=== PATIENT | female | born 1975 | race Two or more races ===

== ENCOUNTER 2020-12-25 13:19 | Inpatient (IN) | payer MEDICAID ==
[~2020-12-25] VITALS: Ht 154.9 cm; Wt 64.5 kg
[~2020-12-25 13:19] MED LIST: IBUP400T22 PO; METO-158 PO; PANT40T PO
[2020-12-25] MEDS ORDERED: ONDANSETRON HCL 4 MG/2 ML VIAL IV ONE (13:45)
[2020-12-25] MEDS ORDERED: SODIUM CHLORIDE 0.9% 1,000 ML IVB ONE (13:45)
[2020-12-25] MEDS ORDERED: MORPHINE SULFATE 4 MG/ML SYR/VIAL IV ONE (14:30)
[2020-12-25 14:38] LABS: Eosinophils # (auto) 0.1 10 ^3/uL (0-0.8); Hemoglobin 11.3 g/dL (12.2-16.2); Lymphocytes # (auto) 0.7 10 ^3/uL (0.4-5.4); Monocytes # (auto) 0.8 10 ^3/uL (0-1.3); Nucleated Red Blood Cells % 0.1 %
[2020-12-25 14:42] LABS: Basophils # (auto) 0.1 10 ^3/uL (0-0.2); Basophils % (auto) 0.4 % (0.0-2.0); Eosinophils % (auto) 0.5 % (0.0-7.0); Hematocrit 34.6 % (36.0-46.0); Lymphocytes % (auto) 3.8 % (10.0-50.0); Mean Corpuscular Hemoglobin 25.1 pg (28.0-32.0); Mean Corpuscular Hgb Conc. 32.6 g/dL (32.0-36.0); Mean Corpuscular Volume 77.2 fL (80.0-100.0); Monocytes % (auto) 4.1 % (0.0-12.0); Neutrophils # (auto) 17.9 10 ^3/uL (1.6-8.6); Neutrophils % (auto) 91.2 % (37.0-80.0); Red Blood Cells 4.49 10^6/uL (4.0-5.20); White Blood Cell 19.6 10^3/uL (4.4-10.8)
[2020-12-25 14:44] LABS: INR 1.03 (0.9-1.15); Partial Thromboplastin Time 25.2 sec (23.0-31.2)
[2020-12-25 14:48] LABS: Urine Bacteria NONE SEEN /hpf (None Seen); Urine Blood Negative /uL (Negative); Urine Mucus FEW (None Seen); Urine Specific Gravity 1.024 (1.001-1.035); Urine WBC 4 /hpf (0 - 5)
[2020-12-25 14:53] LABS: Albumin 3.5 g/dL (3.4-5.0); Calcium 8.9 mg/dL (8.5-10.1); Magnesium 2.2 mg/dL (1.6-2.6); Potassium 3.9 mmol/L (3.5-5.1)
[2020-12-25 14:56] LABS: BUN/Creatinine Ratio 8.3; Bilirubin, Total 0.4 mg/dL (0.2-1.0); Total Protein 7.3 g/dL (6.4-8.2)
[2020-12-25] MEDS ORDERED: cefTRIAXone 1GM/50ML D5W 50 ML IV ONE (16:30)
[2020-12-25] MEDS ORDERED: metroNIDAZOLE 500MG/100ML 100 ML IV ONE (16:30)
[2020-12-25] MEDS ORDERED: ACETAMINOPHEN 325 MG TAB PO ONE (17:30)
[2020-12-25] MEDS ORDERED: NITROGLYCERIN 0.4 MG SL TAB SL PRN (18:15)
[2020-12-25] MEDS ORDERED: LABETALOL HCL 5 MG/ML 4ML SYRINGE IV PRN (18:15)
[2020-12-25] MEDS ORDERED: MORPHINE SULFATE INJECTION 2 MG/ML SYRG IV PRN (18:15)
[2020-12-25] MEDS ORDERED: ACETAMINOPHEN 500 MG TAB PO PRN (18:15)
[2020-12-25] MEDS ORDERED: HYDROcodone-ACET 5/325MG TAB PO PRN (18:15)
[2020-12-25] MEDS: LACTATED RINGER'S 1,000 ML IV SCH (18:34)
[2020-12-25 21:00] VITALS: BP 112/66
[2020-12-25] MEDS: MORPHINE SULFATE INJECTION 2 MG/ML SYRG IV PRN (21:35)
[2020-12-25] MEDS: ONDANSETRON HCL 4 MG/2 ML VIAL IV PRN (21:35)
[2020-12-25] MEDS: metroNIDAZOLE 500MG/100ML 100 ML IV SCH (21:36)
[2020-12-25 22:00] VITALS: BP 112/66
[2020-12-26] MEDS: LACTATED RINGER'S 1,000 ML IV SCH ×3 (02:43→18:34)
[2020-12-26] MEDS ORDERED: SODIUM CHLORIDE 0.9% 500 ML IV ONE (02:45)
[2020-12-26] MEDS: ONDANSETRON HCL 4 MG/2 ML VIAL IV PRN ×3 (04:11→17:34)
[2020-12-26] MEDS: MORPHINE SULFATE INJECTION 2 MG/ML SYRG IV PRN ×5 (04:12→22:33)
[2020-12-26 05:00] VITALS: BP 98/48
[2020-12-26] MEDS: metroNIDAZOLE 500MG/100ML 100 ML IV SCH ×3 (05:35→22:03)
[2020-12-26 06:14] LABS: Basophils # (auto) 0 10 ^3/uL (0-0.2); Eosinophils # (auto) 0 10 ^3/uL (0-0.8); Hemoglobin 9.5 g/dL (12.2-16.2); Red Blood Cells 3.75 10^6/uL (4.0-5.20)
[2020-12-26 06:16] LABS: Basophils % (auto) 0.3 % (0.0-2.0); Hematocrit 29.3 % (36.0-46.0); Lymphocytes # (auto) 0.8 10 ^3/uL (0.4-5.4); Lymphocytes % (auto) 4.4 % (10.0-50.0); Mean Corpuscular Hemoglobin 25.3 pg (28.0-32.0); Mean Corpuscular Hgb Conc. 32.4 g/dL (32.0-36.0); Mean Corpuscular Volume 78.1 fL (80.0-100.0); Monocytes # (auto) 1.4 10 ^3/uL (0-1.3); Neutrophils # (auto) 15.2 10 ^3/uL (1.6-8.6); Neutrophils % (auto) 87.3 % (37.0-80.0); White Blood Cell 17.4 10^3/uL (4.4-10.8)
[2020-12-26 06:34] LABS: Red Cell Distribution Width 24.1 % (11.8-14.3)
[2020-12-26 06:41] VITALS: BP 129/72
[2020-12-26 06:47] LABS: Albumin 2.6 g/dL (3.4-5.0); Calcium 7.2 mg/dL (8.5-10.1); Potassium 3.6 mmol/L (3.5-5.1)
[2020-12-26 06:52] LABS: BUN/Creatinine Ratio 7.5; Bilirubin, Total 0.4 mg/dL (0.2-1.0); Total Protein 5.7 g/dL (6.4-8.2)
[2020-12-26 08:39] VITALS: BP 138/71
[2020-12-26] MEDS: PANTOPRAZOLE 40 MG TAB PO SCH (08:55)
[2020-12-26] MEDS: levoFLOXacin 500MG 100 ML IV SCH (10:26)
[2020-12-26] MEDS: VANCOMYCIN HCL 125MG/5ML ORAL SOL PO SCH ×2 (13:03→17:18)
[2020-12-26 13:15] VITALS: BP 133/70
[2020-12-26 16:09] LABS: Amphetamine Screen, Urine NEGATIVE (NEGATIVE); Barbiturate Scree,Urine NEGATIVE (NEGATIVE); Benzodiazephine Screen, Urine NEGATIVE (NEGATIVE); Cannabinoid Screen, Urine NEGATIVE (NEGATIVE); Cocaine Screen, Urine NEGATIVE (NEGATIVE); Opiate Scree,Urine POSITIVE (NEGATIVE); Phencyclidine Screen, Urine NEGATIVE (NEGATIVE)
[2020-12-26 16:27] VITALS: BP 126/69
[2020-12-26 21:14] VITALS: BP 116/44
[2020-12-27] MEDS: VANCOMYCIN HCL 125MG/5ML ORAL SOL PO SCH ×2 (00:18→05:32)
[2020-12-27] MEDS: ONDANSETRON HCL 4 MG/2 ML VIAL IV PRN ×2 (00:19→06:47)
[2020-12-27] MEDS: MORPHINE SULFATE INJECTION 2 MG/ML SYRG IV PRN ×4 (04:37→22:35)
[2020-12-27] MEDS: LACTATED RINGER'S 1,000 ML IV SCH (04:47)
[2020-12-27 04:53] VITALS: BP 128/73
[2020-12-27] MEDS: metroNIDAZOLE 500MG/100ML 100 ML IV SCH ×3 (05:32→22:34)
[2020-12-27 05:52] LABS: Basophils # (auto) 0.1 10 ^3/uL (0-0.2); Lymphocytes # (auto) 1.5 10 ^3/uL (0.4-5.4); Neutrophils # (auto) 12.8 10 ^3/uL (1.6-8.6); White Blood Cell 15.5 10^3/uL (4.4-10.8)
[2020-12-27 05:55] LABS: Basophils % (auto) 0.7 % (0.0-2.0); Eosinophils # (auto) 0.1 10 ^3/uL (0-0.8); Eosinophils % (auto) 0.9 % (0.0-7.0); Hematocrit 27.8 % (36.0-46.0); Hemoglobin 9.1 g/dL (12.2-16.2); Lymphocytes % (auto) 9.7 % (10.0-50.0); Mean Corpuscular Hemoglobin 25.4 pg (28.0-32.0); Mean Corpuscular Hgb Conc. 32.6 g/dL (32.0-36.0); Mean Corpuscular Volume 77.7 fL (80.0-100.0); Monocytes % (auto) 6.2 % (0.0-12.0); Neutrophils % (auto) 82.5 % (37.0-80.0); Red Blood Cells 3.58 10^6/uL (4.0-5.20); Red Cell Distribution Width 23.2 % (11.8-14.3)
[2020-12-27 06:11] LABS: BUN/Creatinine Ratio 8.2; Calcium 8.2 mg/dL (8.5-10.1); Potassium 3.4 mmol/L (3.5-5.1)
[2020-12-27] MEDS: PANTOPRAZOLE 40 MG TAB PO SCH (08:41)
[2020-12-27] MEDS: levoFLOXacin 500MG 100 ML IV SCH (08:41)
[2020-12-27 09:00] VITALS: BP 128/74
[2020-12-27] MEDS ORDERED: POTASSIUM EFFERVESENT TAB 25 MEQ PO ONE (09:00)
[2020-12-27] MEDS: CHOLESTYRAMINE 4 GM POWDER PO SCH ×2 (11:06→22:34)
[2020-12-27] MEDS: PROMETHAZINE HCL 25 MG/ML 1ML IV PRN ×3 (11:07→22:35)
[2020-12-27] MEDS: VANCOMYCIN HCL 500MG/5ML ORAL SOL PO SCH ×2 (11:09→18:12)
[2020-12-27 13:00] VITALS: BP 124/76
[2020-12-27 17:00] VITALS: BP 123/68
[2020-12-27 22:22] VITALS: BP 111/65
[2020-12-28] MEDS: VANCOMYCIN HCL 500MG/5ML ORAL SOL PO SCH ×5 (00:09→23:34)
[2020-12-28] MEDS: TEMAZEPAM 15 MG CAP PO PRN ×2 (00:18→23:33)
[2020-12-28 05:00] VITALS: BP 119/70
[2020-12-28] MEDS: metroNIDAZOLE 500MG/100ML 100 ML IV SCH ×3 (05:51→21:33)
[2020-12-28] MEDS: MORPHINE SULFATE INJECTION 2 MG/ML SYRG IV PRN ×4 (05:53→22:04)
[2020-12-28] MEDS: PROMETHAZINE HCL 25 MG/ML 1ML IV PRN ×4 (05:53→22:03)
[2020-12-28 06:50] LABS: Hemoglobin 8.9 g/dL (12.2-16.2)
[2020-12-28 06:52] LABS: Basophils # (auto) 0.1 10 ^3/uL (0-0.2); Eosinophils # (auto) 0.4 10 ^3/uL (0-0.8); Eosinophils % (auto) 4.1 % (0.0-7.0); Hematocrit 26.7 % (36.0-46.0); Lymphocytes # (auto) 1.7 10 ^3/uL (0.4-5.4); Mean Corpuscular Hemoglobin 25.8 pg (28.0-32.0); Mean Corpuscular Hgb Conc. 33.3 g/dL (32.0-36.0); Mean Corpuscular Volume 77.4 fL (80.0-100.0); Monocytes # (auto) 0.6 10 ^3/uL (0-1.3); Neutrophils # (auto) 6.7 10 ^3/uL (1.6-8.6); Neutrophils % (auto) 70.9 % (37.0-80.0); Red Blood Cells 3.45 10^6/uL (4.0-5.20); Red Cell Distribution Width 23.8 % (11.8-14.3); White Blood Cell 9.4 10^3/uL (4.4-10.8)
[2020-12-28 07:15] LABS: Potassium 3.2 mmol/L (3.5-5.1)
[2020-12-28 07:19] LABS: BUN/Creatinine Ratio 11.1; Calcium 8.2 mg/dL (8.5-10.1)
[2020-12-28 09:00] VITALS: BP 118/72
[2020-12-28] MEDS: CHOLESTYRAMINE 4 GM POWDER PO SCH ×2 (10:31→22:39)
[2020-12-28] MEDS ORDERED: POTASSIUM CHL 20 Meq TABLET PO ONE (12:30)
[2020-12-28 13:00] VITALS: BP 121/74
[2020-12-28 16:49] VITALS: BP 115/75
[2020-12-28 23:17] VITALS: BP 116/68
[2020-12-29] MEDS: MORPHINE SULFATE INJECTION 2 MG/ML SYRG IV PRN ×5 (04:24→22:51)
[2020-12-29] MEDS: PROMETHAZINE HCL 25 MG/ML 1ML IV PRN ×5 (04:25→22:51)
[2020-12-29 05:08] VITALS: BP 121/75
[2020-12-29] MEDS: VANCOMYCIN HCL 500MG/5ML ORAL SOL PO SCH ×4 (06:13→23:41)
[2020-12-29] MEDS: metroNIDAZOLE 500MG/100ML 100 ML IV SCH ×3 (06:13→21:42)
[2020-12-29 07:04] LABS: Basophils # (auto) 0 10 ^3/uL (0-0.2); Eosinophils # (auto) 0.3 10 ^3/uL (0-0.8); Eosinophils % (auto) 3.8 % (0.0-7.0); Hemoglobin 8.9 g/dL (12.2-16.2); Lymphocytes # (auto) 1.5 10 ^3/uL (0.4-5.4); Mean Corpuscular Volume 77.8 fL (80.0-100.0); Monocytes # (auto) 0.5 10 ^3/uL (0-1.3)
[2020-12-29 07:09] LABS: Basophils % (auto) 0.4 % (0.0-2.0); Hematocrit 26.9 % (36.0-46.0); Lymphocytes % (auto) 16.8 % (10.0-50.0); Mean Corpuscular Hemoglobin 25.9 pg (28.0-32.0); Mean Corpuscular Hgb Conc. 33.2 g/dL (32.0-36.0); Monocytes % (auto) 5.6 % (0.0-12.0); Neutrophils # (auto) 6.6 10 ^3/uL (1.6-8.6); Neutrophils % (auto) 73.4 % (37.0-80.0); Nucleated Red Blood Cells % 0.1 %; Red Blood Cells 3.46 10^6/uL (4.0-5.20); Red Cell Distribution Width 23.2 % (11.8-14.3); White Blood Cell 8.9 10^3/uL (4.4-10.8)
[2020-12-29 07:24] LABS: Potassium 3.6 mmol/L (3.5-5.1)
[2020-12-29 07:27] LABS: BUN/Creatinine Ratio 12.7
[2020-12-29 08:43] VITALS: BP 130/81
[2020-12-29] MEDS: CHOLESTYRAMINE 4 GM POWDER PO SCH (10:11)
[2020-12-29] MEDS: POTASSIUM CHL 20 Meq TABLET PO SCH (10:11)
[2020-12-29 12:57] VITALS: BP 143/80
[2020-12-29] MEDS ORDERED: FUROSEMIDE 40 MG/4 ML VIAL IV ONE (16:15)
[2020-12-29] MEDS ORDERED: POTASSIUM CHLORIDE 40 MEQ, LIDOCAINE 1% (LOCAL ANESTH.) 4 ML in SODIUM CHL 0.9% 250 ML IV ONE (16:15)
[2020-12-29 16:36] VITALS: BP 155/92
[2020-12-29] MEDS: ONDANSETRON HCL 4 MG/2 ML VIAL IV PRN ×2 (16:59→21:42)
[2020-12-29] MEDS: KETOROLAC TROMETH 30 MG/ML 1ML VIAL IV PRN ×2 (17:28→21:42)
[2020-12-29] MEDS: TEMAZEPAM 15 MG CAP PO PRN (21:43)
[2020-12-29 22:29] VITALS: BP 152/91
[2020-12-30] MEDS: ONDANSETRON HCL 4 MG/2 ML VIAL IV PRN ×2 (02:00→06:11)
[2020-12-30] MEDS: PROMETHAZINE HCL 25 MG/ML 1ML IV PRN ×3 (03:10→22:09)
[2020-12-30] MEDS: MORPHINE SULFATE INJECTION 2 MG/ML SYRG IV PRN ×4 (03:10→22:09)
[2020-12-30 05:10] VITALS: BP 147/85
[2020-12-30] MEDS: VANCOMYCIN HCL 500MG/5ML ORAL SOL PO SCH ×3 (05:24→17:47)
[2020-12-30] MEDS: metroNIDAZOLE 500MG/100ML 100 ML IV SCH ×3 (05:24→21:47)
[2020-12-30 05:44] LABS: Basophils # (auto) 0 10 ^3/uL (0-0.2); Basophils % (auto) 0.5 % (0.0-2.0); Eosinophils # (auto) 0 10 ^3/uL (0-0.8); Hematocrit 30.4 % (36.0-46.0); Mean Corpuscular Hemoglobin 25.2 pg (28.0-32.0); Mean Corpuscular Volume 76.3 fL (80.0-100.0); Monocytes # (auto) 0.3 10 ^3/uL (0-1.3); Neutrophils # (auto) 7.6 10 ^3/uL (1.6-8.6)
[2020-12-30 05:47] LABS: Eosinophils % (auto) 0.1 % (0.0-7.0); Lymphocytes # (auto) 0.9 10 ^3/uL (0.4-5.4); Lymphocytes % (auto) 10.2 % (10.0-50.0); Monocytes % (auto) 3.2 % (0.0-12.0); Red Blood Cells 3.98 10^6/uL (4.0-5.20); Red Cell Distribution Width 24.2 % (11.8-14.3); White Blood Cell 8.9 10^3/uL (4.4-10.8)
[2020-12-30 06:15] LABS: BUN/Creatinine Ratio 19.2; Calcium 8.6 mg/dL (8.5-10.1)
[2020-12-30 08:00] VITALS: BP 150/84
[2020-12-30] MEDS: POTASSIUM CHL 20 Meq TABLET PO SCH (08:21)
[2020-12-30 09:00] VITALS: BP 150/84
[2020-12-30] MEDS ORDERED: FUROSEMIDE 40 MG/4 ML VIAL IV ONE (10:00)
[2020-12-30] MEDS ORDERED: METOCLOPRAMIDE HCL 5MG/ml INJ 2ml VIAL IV ONE (10:15)
[2020-12-30 12:40] VITALS: BP 142/77
[2020-12-30] MEDS: METOCLOPRAMIDE HCL 5MG/ml INJ 2ml VIAL IV SCH ×2 (15:54→21:47)
[2020-12-30 16:31] VITALS: BP 140/74
[2020-12-30 21:57] VITALS: BP 125/71
[2020-12-31] MEDS: VANCOMYCIN HCL 500MG/5ML ORAL SOL PO SCH ×5 (00:03→23:45)
[2020-12-31] MEDS: PROMETHAZINE HCL 25 MG/ML 1ML IV PRN (04:21)
[2020-12-31] MEDS: MORPHINE SULFATE INJECTION 2 MG/ML SYRG IV PRN (04:21)
[2020-12-31 05:00] VITALS: BP 138/75
[2020-12-31] MEDS: metroNIDAZOLE 500MG/100ML 100 ML IV SCH ×3 (05:22→22:28)
[2020-12-31] MEDS: METOCLOPRAMIDE HCL 5MG/ml INJ 2ml VIAL IV SCH ×3 (05:22→22:28)
[2020-12-31 06:28] LABS: Basophils # (auto) 0.1 10 ^3/uL (0-0.2); Basophils % (auto) 0.5 % (0.0-2.0); Eosinophils # (auto) 0 10 ^3/uL (0-0.8); Eosinophils % (auto) 0.1 % (0.0-7.0); Hematocrit 30.5 % (36.0-46.0); Monocytes # (auto) 0.5 10 ^3/uL (0-1.3); Neutrophils # (auto) 9.7 10 ^3/uL (1.6-8.6); White Blood Cell 11.3 10^3/uL (4.4-10.8)
[2020-12-31 06:32] LABS: Hemoglobin 9.8 g/dL (12.2-16.2); Lymphocytes % (auto) 9.2 % (10.0-50.0); Mean Corpuscular Hemoglobin 24.8 pg (28.0-32.0); Mean Corpuscular Hgb Conc. 32.1 g/dL (32.0-36.0); Mean Corpuscular Volume 77.2 fL (80.0-100.0); Monocytes % (auto) 4.7 % (0.0-12.0); Neutrophils % (auto) 85.5 % (37.0-80.0); Red Blood Cells 3.95 10^6/uL (4.0-5.20)
[2020-12-31 06:44] LABS: Potassium 3.4 mmol/L (3.5-5.1)
[2020-12-31 06:48] LABS: BUN/Creatinine Ratio 21.7; Calcium 8.5 mg/dL (8.5-10.1)
[2020-12-31 06:54] LABS: Red Cell Distribution Width 24.1 % (11.8-14.3)
[2020-12-31 09:00] VITALS: BP 149/82
[2020-12-31] MEDS: POTASSIUM CHL 20 Meq TABLET PO SCH (09:50)
[2020-12-31] MEDS ORDERED: POTASSIUM CHL 20 Meq TABLET PO ONE (10:15)
[2020-12-31] MEDS ORDERED: FUROSEMIDE 40 MG TAB PO ONE (10:15)
[2020-12-31] MEDS ORDERED: MORPHINE SULFATE INJECTION 2 MG/ML SYRG IV PRN (10:30)
[2020-12-31] MEDS: ONDANSETRON HCL 4 MG/2 ML VIAL IV PRN ×2 (11:43→17:37)
[2020-12-31 13:00] VITALS: BP 135/73
[2020-12-31 17:00] VITALS: BP 139/75
[2020-12-31] MEDS: HYDROcodone-ACET 5/325MG TAB PO PRN ×2 (17:55→22:28)
[2020-12-31 22:00] VITALS: BP 145/78
[2020-12-31] MEDS: TEMAZEPAM 15 MG CAP PO PRN (22:28)
[2021-01-01 05:00] VITALS: BP 145/81
[2021-01-01 05:59] LABS: Eosinophils # (auto) 0.1 10 ^3/uL (0-0.8); Hematocrit 29.2 % (36.0-46.0); Lymphocytes # (auto) 1.8 10 ^3/uL (0.4-5.4); Monocytes # (auto) 0.8 10 ^3/uL (0-1.3); Nucleated Red Blood Cells % 0.1 %
[2021-01-01 06:03] LABS: Basophils # (auto) 0 10 ^3/uL (0-0.2); Basophils % (auto) 0.6 % (0.0-2.0); Eosinophils % (auto) 0.7 % (0.0-7.0); Hemoglobin 9.8 g/dL (12.2-16.2); Lymphocytes % (auto) 20.8 % (10.0-50.0); Mean Corpuscular Hemoglobin 25.8 pg (28.0-32.0); Mean Corpuscular Hgb Conc. 33.6 g/dL (32.0-36.0); Mean Corpuscular Volume 76.8 fL (80.0-100.0); Neutrophils # (auto) 5.8 10 ^3/uL (1.6-8.6); Neutrophils % (auto) 68.9 % (37.0-80.0); Red Cell Distribution Width 22.9 % (11.8-14.3); White Blood Cell 8.5 10^3/uL (4.4-10.8)
[2021-01-01] MEDS: METOCLOPRAMIDE HCL 5MG/ml INJ 2ml VIAL IV SCH (06:10)
[2021-01-01] MEDS: VANCOMYCIN HCL 500MG/5ML ORAL SOL PO SCH (06:10)
[2021-01-01] MEDS: metroNIDAZOLE 500MG/100ML 100 ML IV SCH (06:10)
[2021-01-01] MEDS: ONDANSETRON HCL 4 MG/2 ML VIAL IV PRN (06:11)
[2021-01-01 09:00] VITALS: BP 147/89
[2021-01-01] MEDS ORDERED: METR500T14 PO (09:48)
[2021-01-01] MEDS ORDERED: PROM25TA5 PO (09:48)
[2021-01-01] MEDS: POTASSIUM CHL 20 Meq TABLET PO SCH (09:48)
== END 2021-01-01 11:29 | disposition home or self-care (01) | DRG 720 ==
LOC: ER 13:19 → TELE 18:11 → TELE-WESTW 20:48 → WEST WING 12-28 22:07
PROVIDERS: ADMIT Nurse Practitioner Acute Care; ATTEND Internal Medicine
DX: A41.9 Sepsis, unspecified organism (principal); A04.72 Enterocolitis due to Clostridium difficile, not specified as recurrent; E44.1 Mild protein-calorie malnutrition; F11.20 Opioid dependence, uncomplicated; I10 Essential (primary) hypertension; N39.0 Urinary tract infection, site not specified; Z20.822 Contact with and (suspected) exposure to COVID-19; E87.6 Hypokalemia; Z83.3 Family history of diabetes mellitus; Z79.899 Other long term (current) drug therapy; Z80.9 Family history of malignant neoplasm, unspecified; Z85.038 Personal history of other malignant neoplasm of large intestine; Z90.49 Acquired absence of other specified parts of digestive tract; Z68.27 Body mass index [BMI] 27.0-27.9, adult
CPT/HCPCS: 36415; 71045; 74176; 80048; 80053; 80307; 81001; 81025; 82040; 83605; 83735; 84132; 85025; 85610; 85730; 87040; 87045; 87081; 87086; 87426; 87427; 87493; 93005; 96361; 96365; 96368; 96375; G0378; J0696; J1885; J1956; J2001; J2405; J3490

== ENCOUNTER 2021-01-13 16:24 | Inpatient (IN) | payer MEDICAID ==
[~2021-01-13] VITALS: Ht 152.4 cm; Wt 60.0 kg
[~2021-01-13 16:24] MED LIST changes: +METR500T14 PO; +PROM25TA5 PO
[2021-01-13] MEDS ORDERED: IOHEXOL 300 MG/ML 100ML BOTTLE IJ ONE ×2 (16:44→18:02)
[2021-01-13] MEDS ORDERED: ONDANSETRON HCL 4 MG/2 ML VIAL IV ONE (16:45)
[2021-01-13] MEDS ORDERED: MORPHINE SULFATE 4 MG/ML SYR/VIAL IV ONE (16:45)
[2021-01-13] MEDS ORDERED: SODIUM CHLORIDE 0.9% 1,000 ML IVB ONE (16:45)
[2021-01-13 17:18] LABS: Basophils # (auto) 0.1 10 ^3/uL (0-0.2); Eosinophils # (auto) 0.1 10 ^3/uL (0-0.8); Eosinophils % (auto) 0.7 % (0.0-7.0); Hemoglobin 11.2 g/dL (12.2-16.2); Monocytes # (auto) 0.7 10 ^3/uL (0-1.3); Monocytes % (auto) 5.7 % (0.0-12.0)
[2021-01-13 17:19] LABS: Basophils % (auto) 0.6 % (0.0-2.0); Mean Corpuscular Hemoglobin 24.8 pg (28.0-32.0); Mean Corpuscular Hgb Conc. 32.8 g/dL (32.0-36.0); Mean Corpuscular Volume 75.6 fL (80.0-100.0); Neutrophils # (auto) 10.9 10 ^3/uL (1.6-8.6); Nucleated Red Blood Cells % 0.1 %; Red Cell Distribution Width 21.3 % (11.8-14.3); White Blood Cell 12.8 10^3/uL (4.4-10.8)
[2021-01-13 17:21] LABS: Urine Bacteria NONE SEEN /hpf (None Seen); Urine Blood Negative /uL (Negative); Urine Mucus FEW (None Seen); Urine Specific Gravity 1.017 (1.001-1.035); Urine WBC 1 /hpf (0 - 5)
[2021-01-13 17:33] LABS: Albumin 3.6 g/dL (3.4-5.0); Calcium 8.8 mg/dL (8.5-10.1)
[2021-01-13 17:35] LABS: BUN/Creatinine Ratio 9.8; Bilirubin, Total 0.4 mg/dL (0.2-1.0); Total Protein 7.6 g/dL (6.4-8.2)
[2021-01-13] MEDS ORDERED: metroNIDAZOLE 500MG/100ML 100 ML IV ONE (19:45)
[2021-01-13] MEDS ORDERED: cefTRIAXone 1GM/50ML D5W 50 ML IV ONE (20:45)
[2021-01-13] MEDS: HYDROcodone-ACET 5/325MG TAB PO PRN (21:34)
[2021-01-13] MEDS ORDERED: PANTOPRAZOLE 40 MG TAB PO SCH (22:00)
[2021-01-13] MEDS ORDERED: METO-289 PO (22:10)
[2021-01-13 22:26] VITALS: BP 131/78
[2021-01-13] MEDS: metroNIDAZOLE 500MG/100ML 100 ML IV SCH (22:36)
[2021-01-13 22:55] VITALS: BP 131/78
[2021-01-14] MEDS ORDERED: TEMAZEPAM 15 MG CAP PO ONE ×2 (00:30→23:15)
[2021-01-14] MEDS ORDERED: ACET-1304 PO (03:08)
[2021-01-14 04:24] VITALS: BP 133/76
[2021-01-14] MEDS: HYDROcodone-ACET 5/325MG TAB PO PRN ×2 (04:36→15:20)
[2021-01-14 05:57] LABS: Basophils # (auto) 0.1 10 ^3/uL (0-0.2); Basophils % (auto) 0.7 % (0.0-2.0); Eosinophils # (auto) 0.1 10 ^3/uL (0-0.8); Eosinophils % (auto) 1.8 % (0.0-7.0); Hematocrit 28.6 % (36.0-46.0); Hemoglobin 9.5 g/dL (12.2-16.2); Lymphocytes % (auto) 12.7 % (10.0-50.0); Mean Corpuscular Hemoglobin 24.8 pg (28.0-32.0); Mean Corpuscular Hgb Conc. 33.1 g/dL (32.0-36.0); Monocytes # (auto) 0.6 10 ^3/uL (0-1.3); Monocytes % (auto) 8.4 % (0.0-12.0); Neutrophils # (auto) 5.9 10 ^3/uL (1.6-8.6); Neutrophils % (auto) 76.4 % (37.0-80.0); Nucleated Red Blood Cells % 0.1 %; Red Blood Cells 3.82 10^6/uL (4.0-5.20); Red Cell Distribution Width 20.7 % (11.8-14.3); White Blood Cell 7.8 10^3/uL (4.4-10.8)
[2021-01-14] MEDS: metroNIDAZOLE 500MG/100ML 100 ML IV SCH ×3 (05:57→22:03)
[2021-01-14 06:18] LABS: Calcium 7.8 mg/dL (8.5-10.1)
[2021-01-14 06:22] LABS: BUN/Creatinine Ratio 9.1; Potassium 2.9 mmol/L (3.5-5.1)
[2021-01-14 08:30] VITALS: BP 120/72
[2021-01-14] MEDS: MORPHINE SULFATE INJECTION 2 MG/ML SYRG IV PRN ×2 (09:51→21:26)
[2021-01-14] MEDS: ONDANSETRON HCL 4 MG/2 ML VIAL IV PRN ×2 (09:51→21:26)
[2021-01-14] MEDS: VANCOMYCIN HCL 125MG/5ML ORAL SOL PO SCH ×2 (12:18→18:16)
[2021-01-14 12:42] VITALS: BP 129/72
[2021-01-14] MEDS ORDERED: METOPROLOL SUCCINATE XL 50 MG TAB PO ONE (14:15)
[2021-01-14] MEDS ORDERED: POTASSIUM CHLORIDE 20 MEQ, LIDOCAINE 1% (LOCAL ANESTH.) 2 ML in SODIUM CHL 0.9% 100 ML IV ONE (15:00)
[2021-01-14] MEDS ORDERED: POTASSIUM EFFERVESENT TAB 25 MEQ PO ONE (15:00)
[2021-01-14 16:08] LABS: Alcohol, Urine < 3.0 mg/dL (0-10); Amphetamine Screen, Urine NEGATIVE (NEGATIVE); Barbiturate Scree,Urine NEGATIVE (NEGATIVE); Benzodiazephine Screen, Urine NEGATIVE (NEGATIVE); Cannabinoid Screen, Urine POSITIVE (NEGATIVE); Cocaine Screen, Urine NEGATIVE (NEGATIVE); Opiate Scree,Urine POSITIVE (NEGATIVE); Phencyclidine Screen, Urine NEGATIVE (NEGATIVE)
[2021-01-14 16:34] VITALS: BP 136/79
[2021-01-14 16:50] LABS: % Iron Saturation 4.3 % (15-50)
[2021-01-14 16:58] LABS: Folate (Folic Acid) 21.99 ng/mL (5.38-24)
[2021-01-14 20:00] VITALS: BP 127/80
[2021-01-14] MEDS ORDERED: cefTRIAXone 1GM/50ML D5W 50 ML IV SCH (21:00)
[2021-01-14 22:00] VITALS: BP 127/80
[2021-01-15] VITALS (7 sets, daily range): BP systolic 115–128; BP diastolic 69–78
[2021-01-15] MEDS: VANCOMYCIN HCL 125MG/5ML ORAL SOL PO SCH ×5 (00:17→23:51)
[2021-01-15 05:32] LABS: Potassium 3.3 mmol/L (3.5-5.1)
[2021-01-15 05:39] LABS: BUN/Creatinine Ratio 5.6; Calcium 8.3 mg/dL (8.5-10.1)
[2021-01-15] MEDS: metroNIDAZOLE 500MG/100ML 100 ML IV SCH ×3 (06:03→21:58)
[2021-01-15] MEDS: MORPHINE SULFATE INJECTION 2 MG/ML SYRG IV PRN ×2 (06:14→22:18)
[2021-01-15] MEDS ORDERED: POTASSIUM EFFERVESENT TAB 25 MEQ PO ONE (09:15)
[2021-01-15] MEDS: FLORASTOR (S. BOULARDII) 250 MG CAP PO SCH ×2 (09:44→21:58)
[2021-01-15] MEDS: METOPROLOL SUCCINATE XL 50 MG TAB PO SCH (09:45)
[2021-01-15] MEDS: SODIUM FERR GLUC 62.5MG/5ML 125 MG in SODIUM CHL 0.9% 100 ML IV SCH (11:56)
[2021-01-16 05:08] VITALS: BP 117/69
[2021-01-16] MEDS: metroNIDAZOLE 500MG/100ML 100 ML IV SCH (05:52)
[2021-01-16] MEDS: VANCOMYCIN HCL 125MG/5ML ORAL SOL PO SCH ×2 (05:52→12:23)
[2021-01-16] MEDS: HYDROcodone-ACET 5/325MG TAB PO PRN (06:13)
[2021-01-16 09:14] VITALS: BP 118/73
[2021-01-16] MEDS: METOPROLOL SUCCINATE XL 50 MG TAB PO SCH (09:29)
[2021-01-16] MEDS: FLORASTOR (S. BOULARDII) 250 MG CAP PO SCH (09:29)
[2021-01-16] MEDS ORDERED: VANC125PO PO (09:58)
[2021-01-16 11:04] VITALS: BP 118/73
[2021-01-16] MEDS: SODIUM FERR GLUC 62.5MG/5ML 125 MG in SODIUM CHL 0.9% 100 ML IV SCH (12:23)
[2021-01-16 12:31] VITALS: BP 117/73
== END 2021-01-16 13:15 | disposition home or self-care (01) | DRG 248 ==
LOC: ER 16:24 → OVERFLOW 20:35 → CENTRAL 22:08
PROVIDERS: ADMIT Nurse Practitioner; ATTEND Internal Medicine
DX: A04.72 Enterocolitis due to Clostridium difficile, not specified as recurrent (principal); C18.6 Malignant neoplasm of descending colon; R71.0 Precipitous drop in hematocrit; D72.829 Elevated white blood cell count, unspecified; E87.6 Hypokalemia; I10 Essential (primary) hypertension; Z80.9 Family history of malignant neoplasm, unspecified; Z82.49 Family history of ischemic heart disease and other diseases of the circulatory system; Z83.3 Family history of diabetes mellitus; Z85.038 Personal history of other malignant neoplasm of large intestine; Z90.49 Acquired absence of other specified parts of digestive tract; Z98.51 Tubal ligation status; Z20.822 Contact with and (suspected) exposure to COVID-19
CPT/HCPCS: 36415; 74177; 80048; 80053; 80307; 81001; 82607; 82746; 83540; 83550; 83605; 83690; 83735; 85025; 87040; 87081; 87426; 87493; 96361; 96365; 96367; 96375; G0378; J0696; J2001; J2405; J3490

== ENCOUNTER 2021-01-24 11:33 | Emergency (ER) | payer MEDICAID ==
[~2021-01-24] VITALS: Ht 152.4 cm; Wt 59.0 kg
[~2021-01-24 11:33] MED LIST changes: +ACET-1304 PO; -IBUP400T22 PO; -METO-158 PO; +METO-289 PO; -METR500T14 PO; -PANT40T PO; -PROM25TA5 PO; +VANC125PO PO
[2021-01-24] MEDS ORDERED: ONDANSETRON HCL 4 MG/2 ML VIAL IV ONE (12:00)
[2021-01-24] MEDS ORDERED: MORPHINE SULFATE 4 MG/ML SYR/VIAL IV ONE (12:00)
[2021-01-24 12:19] LABS: Basophils # (auto) 0.1 10 ^3/uL (0-0.2); Eosinophils # (auto) 0.1 10 ^3/uL (0-0.8); Eosinophils % (auto) 1.1 % (0.0-7.0); Hematocrit 37.9 % (36.0-46.0); Lymphocytes # (auto) 1.6 10 ^3/uL (0.4-5.4); Monocytes # (auto) 0.3 10 ^3/uL (0-1.3); Monocytes % (auto) 4.1 % (0.0-12.0); White Blood Cell 8.1 10^3/uL (4.4-10.8)
[2021-01-24 12:24] LABS: Basophils % (auto) 1.1 % (0.0-2.0); Hemoglobin 12.6 g/dL (12.2-16.2); Lymphocytes % (auto) 19.8 % (10.0-50.0); Mean Corpuscular Hemoglobin 25.6 pg (28.0-32.0); Mean Corpuscular Hgb Conc. 33.2 g/dL (32.0-36.0); Mean Corpuscular Volume 77.1 fL (80.0-100.0); Neutrophils % (auto) 73.9 % (37.0-80.0); Nucleated Red Blood Cells % 0.1 %; Platelet Count (auto) 429 10^3/uL (140-450); Red Blood Cells 4.92 10^6/uL (4.0-5.20)
[2021-01-24 12:26] LABS: Red Cell Distribution Width 22.2 % (11.8-14.3)
[2021-01-24 12:37] LABS: Albumin 3.8 g/dL (3.4-5.0); Anion Gap 8 (5-15); BUN/Creatinine Ratio 11.4; Blood Urea Nitrogen 8 mg/dL (7-18); Calcium 8.9 mg/dL (8.5-10.1); Carbon Dioxide 25 mmol/L (21-32); Chloride 107 mmol/L (98-107); GFR African American 115 mL/min; GFR Non-African American 95 mL/min; Glucose 96 mg/dL (74-106); Magnesium 2.1 mg/dL (1.6-2.6); Sodium 140 mmol/L (136-145)
[2021-01-24 12:42] LABS: Alanine Aminotransferase 18 U/L (13-56); Alkaline Phosphatase 66 U/L (45-117); Aspartate Aminotransferase 11 U/L (15-37); Bilirubin, Total 0.4 mg/dL (0.2-1.0); Total Protein 7.9 g/dL (6.4-8.2)
[2021-01-24] MEDS ORDERED: HYDROmorphone HCL 2 MG/ML VL IV ONE (14:30)
[2021-01-24 15:00] VITALS: BP 138/79
== END 2021-01-24 16:00 | disposition home or self-care (01) ==
LOC: ER 11:35
DX: R10.13 Epigastric pain (principal); R11.2 Nausea with vomiting, unspecified; I10 Essential (primary) hypertension; Z90.49 Acquired absence of other specified parts of digestive tract; Z79.2 Long term (current) use of antibiotics; Z79.899 Other long term (current) drug therapy
CPT/HCPCS: 36415; 74176; 80053; 83735; 84484; 85025; 93005; 96374; 96375; 99285; J1170; J2270; J2405

== ENCOUNTER 2021-03-29 02:46 | Emergency (ER) | payer MEDICAID ==
[~2021-03-29] VITALS: Ht 152.4 cm; Wt 59.0 kg
[2021-03-29] MEDS ORDERED: ONDANSETRON ODT 4 MG TAB PO ONE ×2 (03:21→03:30)
[2021-03-29 03:59] LABS: Eosinophils # (auto) 0.1 10 ^3/uL (0-0.8); Eosinophils % (auto) 0.5 % (0.0-7.0); Hemoglobin 12.6 g/dL (12.2-16.2); Lymphocytes # (auto) 1.1 10 ^3/uL (0.4-5.4); Monocytes # (auto) 0.5 10 ^3/uL (0-1.3); Monocytes % (auto) 3.7 % (0.0-12.0); Nucleated Red Blood Cells % 0.1 %
[2021-03-29 04:00] LABS: Basophils # (auto) 0 10 ^3/uL (0-0.2); Basophils % (auto) 0.3 % (0.0-2.0); Hematocrit 38.4 % (36.0-46.0); Lymphocytes % (auto) 7.7 % (10.0-50.0); Mean Corpuscular Hemoglobin 25.5 pg (28.0-32.0); Mean Corpuscular Hgb Conc. 32.9 g/dL (32.0-36.0); Mean Corpuscular Volume 77.4 fL (80.0-100.0); Neutrophils # (auto) 12.1 10 ^3/uL (1.6-8.6); Neutrophils % (auto) 87.8 % (37.0-80.0); Red Blood Cells 4.96 10^6/uL (4.0-5.20); White Blood Cell 13.8 10^3/uL (4.4-10.8)
[2021-03-29 04:12] LABS: Red Cell Distribution Width 20.8 % (11.8-14.3)
[2021-03-29 06:08] LABS: Albumin 3.7 g/dL (3.4-5.0); BUN/Creatinine Ratio 17.6; Calcium 9.1 mg/dL (8.5-10.1); Potassium 3.9 mmol/L (3.5-5.1)
[2021-03-29 06:11] LABS: Bilirubin, Total 0.3 mg/dL (0.2-1.0); Total Protein 7.9 g/dL (6.4-8.2)
[2021-03-29 08:19] LABS: Urine Bacteria NONE SEEN /hpf (None Seen); Urine Blood 2+ /uL (Negative); Urine Mucus FEW (None Seen); Urine Specific Gravity 1.037 (1.001-1.035); Urine WBC 4 /hpf (0 - 5)
[2021-03-29] MEDS ORDERED: SODIUM CHLORIDE 0.9% 1,000 ML IVB ONE (08:30)
[2021-03-29] MEDS ORDERED: PROMETHAZINE HCL 25 MG/ML 1ML IV PRN (08:30)
[2021-03-29] MEDS ORDERED: HYDROmorphone HCL 2 MG/ML VL IV ONE (08:30)
[2021-03-29] MEDS ORDERED: SODIUM CHLORIDE 0.9% 500 ML IVB ONE (08:30)
[2021-03-29] MEDS ORDERED: SODIUM CHLORIDE 0.9% 1,000 ML IV ONE (08:30)
[2021-03-29] MEDS ORDERED: ONDANSETRON HCL 4 MG/2 ML VIAL ONE (08:40)
[2021-03-29] MEDS ORDERED: IOHEXOL 300 MG/ML 100ML BOTTLE IJ ONE (09:01)
[2021-03-29 13:21] VITALS: BP 110/69
== END 2021-03-29 14:00 | disposition home or self-care (01) ==
LOC: ER 02:46 → EDBD 02:46 → ER 13:59
DX: R10.32 Left lower quadrant pain (principal); D50.9 Iron deficiency anemia, unspecified; Z20.822 Contact with and (suspected) exposure to COVID-19; I10 Essential (primary) hypertension; Z90.49 Acquired absence of other specified parts of digestive tract; Z79.2 Long term (current) use of antibiotics; Z79.899 Other long term (current) drug therapy
CPT/HCPCS: 36415; 71045; 74177; 80053; 81001; 83690; 85025; 87426; 93005; 96361; 96374; 96375; 99285; J1170; J2405; J2550; J7030; J7040; Q0162; Q9967

== ENCOUNTER 2021-04-28 02:16 | Inpatient (IN) | payer MEDICAID ==
[~2021-04-28] VITALS: Ht 154.9 cm; Wt 61.3 kg
[2021-04-28 02:40] LABS: Basophils # (auto) 0 10 ^3/uL (0-0.2); Eosinophils # (auto) 0 10 ^3/uL (0-0.8); Eosinophils % (auto) 0.3 % (0.0-7.0); Hemoglobin 11.1 g/dL (12.2-16.2); Lymphocytes # (auto) 0.8 10 ^3/uL (0.4-5.4); Mean Corpuscular Hgb Conc. 33.1 g/dL (32.0-36.0)
[2021-04-28 02:42] LABS: Basophils % (auto) 0.6 % (0.0-2.0); Hematocrit 33.5 % (36.0-46.0); Lymphocytes % (auto) 13.4 % (10.0-50.0); Mean Corpuscular Hemoglobin 26.3 pg (28.0-32.0); Mean Corpuscular Volume 79.3 fL (80.0-100.0); Monocytes # (auto) 0.4 10 ^3/uL (0-1.3); Monocytes % (auto) 7.9 % (0.0-12.0); Neutrophils # (auto) 4.4 10 ^3/uL (1.6-8.6); Neutrophils % (auto) 77.8 % (37.0-80.0); Nucleated Red Blood Cells % 0.1 %; Red Blood Cells 4.22 10^6/uL (4.0-5.20); White Blood Cell 5.7 10^3/uL (4.4-10.8)
[2021-04-28 03:01] LABS: Red Cell Distribution Width 20.5 % (11.8-14.3)
[2021-04-28 03:05] LABS: Albumin 3.5 g/dL (3.4-5.0); BUN/Creatinine Ratio 16.7; Calcium 9.1 mg/dL (8.5-10.1); Potassium 3.7 mmol/L (3.5-5.1)
[2021-04-28 03:08] LABS: Bilirubin, Total 0.7 mg/dL (0.2-1.0); Total Protein 7.4 g/dL (6.4-8.2)
[2021-04-28] MEDS ORDERED: SODIUM CHLORIDE 0.9% 1,000 ML IV ONE ×2 (07:00→13:30)
[2021-04-28] MEDS ORDERED: ONDANSETRON HCL 4 MG/2 ML VIAL IV ONE (07:30)
[2021-04-28] MEDS ORDERED: PROMETHAZINE HCL 25 MG/ML 1ML ONE (07:32)
[2021-04-28] MEDS ORDERED: PROMETHAZINE HCL 25 MG/ML 1ML IV ONE (07:45)
[2021-04-28] MEDS ORDERED: MORPHINE SULFATE 4 MG/ML SYR/VIAL IV ONE (07:45)
[2021-04-28] MEDS ORDERED: metroNIDAZOLE 500MG/100ML 100 ML IV ONE (09:30)
[2021-04-28] MEDS ORDERED: ONDANSETRON HCL 4 MG/2 ML VIAL IV PRN (13:30)
[2021-04-28] MEDS ORDERED: NITROGLYCERIN 0.4 MG SL TAB SL PRN (13:30)
[2021-04-28] MEDS ORDERED: MORPHINE SULFATE INJECTION 2 MG/ML SYRG IV PRN (13:30)
[2021-04-28 14:15] LABS: Urine Bacteria NONE SEEN /hpf (None Seen); Urine Blood 2+ /uL (Negative); Urine Mucus FEW (None Seen); Urine Specific Gravity 1.019 (1.001-1.035); Urine WBC 2 /hpf (0 - 5)
[2021-04-28] MEDS: PROMETHAZINE HCL 25 MG/ML 1ML IV PRN ×2 (16:20→21:55)
[2021-04-28] MEDS: MORPHINE SULFATE INJECTION 2 MG/ML SYRG IV PRN ×2 (17:31→22:09)
[2021-04-28] MEDS: METOPROLOL SUCCINATE XL 50 MG TAB PO SCH (17:36)
[2021-04-29] MEDS: PROMETHAZINE HCL 25 MG/ML 1ML IV PRN ×5 (02:11→23:02)
[2021-04-29] MEDS: MORPHINE SULFATE INJECTION 2 MG/ML SYRG IV PRN ×3 (06:17→18:46)
[2021-04-29] MEDS: FLORASTOR (S. BOULARDII) 250 MG CAP PO SCH ×2 (11:16→23:02)
[2021-04-29] MEDS: METOPROLOL SUCCINATE XL 50 MG TAB PO SCH (11:19)
[2021-04-29] MEDS: levoFLOXacin 500MG 100 ML IV SCH (13:00)
[2021-04-29] MEDS: metroNIDAZOLE 500MG/100ML 100 ML IV SCH ×2 (15:22→23:03)
[2021-04-29 22:00] VITALS: BP 140/75
[2021-04-29 23:00] VITALS: BP 140/75
[2021-04-30] MEDS: PROMETHAZINE HCL 25 MG/ML 1ML IV PRN ×5 (04:45→23:11)
[2021-04-30] MEDS: MORPHINE SULFATE INJECTION 2 MG/ML SYRG IV PRN ×3 (04:47→18:16)
[2021-04-30 05:00] VITALS: BP 147/82
[2021-04-30] MEDS: metroNIDAZOLE 500MG/100ML 100 ML IV SCH ×3 (05:49→21:06)
[2021-04-30] MEDS: levoFLOXacin 500MG 100 ML IV SCH (09:01)
[2021-04-30] MEDS: FLORASTOR (S. BOULARDII) 250 MG CAP PO SCH ×2 (09:01→21:06)
[2021-04-30] MEDS: METOPROLOL SUCCINATE XL 50 MG TAB PO SCH (09:02)
[2021-04-30 22:00] VITALS: BP 145/85
[2021-05-01] MEDS: PROMETHAZINE HCL 25 MG/ML 1ML IV PRN ×5 (03:09→23:06)
[2021-05-01] MEDS: MORPHINE SULFATE INJECTION 2 MG/ML SYRG IV PRN ×4 (03:09→22:45)
[2021-05-01 05:00] VITALS: BP 147/87
[2021-05-01] MEDS: metroNIDAZOLE 500MG/100ML 100 ML IV SCH ×3 (05:06→21:48)
[2021-05-01 05:41] LABS: Basophils # (auto) 0 10 ^3/uL (0-0.2); Basophils % (auto) 0.6 % (0.0-2.0); Eosinophils # (auto) 0 10 ^3/uL (0-0.8); Eosinophils % (auto) 0.3 % (0.0-7.0); Hemoglobin 10.7 g/dL (12.2-16.2); Lymphocytes # (auto) 0.8 10 ^3/uL (0.4-5.4); Monocytes # (auto) 0.9 10 ^3/uL (0-1.3); White Blood Cell 5.8 10^3/uL (4.4-10.8)
[2021-05-01 05:44] LABS: Hematocrit 31.7 % (36.0-46.0); Lymphocytes % (auto) 14.4 % (10.0-50.0); Mean Corpuscular Hemoglobin 25.8 pg (28.0-32.0); Mean Corpuscular Hgb Conc. 33.7 g/dL (32.0-36.0); Mean Corpuscular Volume 76.7 fL (80.0-100.0); Monocytes % (auto) 15.4 % (0.0-12.0); Neutrophils % (auto) 69.3 % (37.0-80.0); Nucleated Red Blood Cells % 0.2 %; Red Blood Cells 4.13 10^6/uL (4.0-5.20); Red Cell Distribution Width 19.1 % (11.8-14.3)
[2021-05-01 06:02] LABS: BUN/Creatinine Ratio 14.3; Calcium 8.1 mg/dL (8.5-10.1); Magnesium 2.4 mg/dL (1.6-2.6)
[2021-05-01] MEDS ORDERED: HYDR-4798 PO (06:07)
[2021-05-01] MEDS ORDERED: HYDR25TA5 PO (06:07)
[2021-05-01] MEDS ORDERED: DOCU-94 PO (06:07)
[2021-05-01 08:00] VITALS: BP 125/75
[2021-05-01] MEDS: FLORASTOR (S. BOULARDII) 250 MG CAP PO SCH ×2 (09:50→21:48)
[2021-05-01] MEDS: levoFLOXacin 500MG 100 ML IV SCH (09:50)
[2021-05-01] MEDS: METOPROLOL SUCCINATE XL 50 MG TAB PO SCH (09:52)
[2021-05-01 12:00] VITALS: BP 129/74
[2021-05-01] MEDS ORDERED: POTASSIUM CHL 20MEQ/100ML 100 ML IV ONE (12:00)
[2021-05-01] MEDS ORDERED: POTASSIUM CHL 20 Meq TABLET PO ONE (12:00)
[2021-05-01 17:00] VITALS: BP 136/79
[2021-05-01 22:11] VITALS: BP 132/79
[2021-05-02] MEDS: MORPHINE SULFATE INJECTION 2 MG/ML SYRG IV PRN ×4 (04:48→23:10)
[2021-05-02] MEDS: metroNIDAZOLE 500MG/100ML 100 ML IV SCH ×3 (04:49→21:34)
[2021-05-02] MEDS: PROMETHAZINE HCL 25 MG/ML 1ML IV PRN ×4 (04:49→21:45)
[2021-05-02 06:50] LABS: Basophils # (auto) 0 10 ^3/uL (0-0.2); Basophils % (auto) 0.5 % (0.0-2.0); Eosinophils # (auto) 0 10 ^3/uL (0-0.8); Lymphocytes # (auto) 1.2 10 ^3/uL (0.4-5.4); Monocytes # (auto) 0.9 10 ^3/uL (0-1.3); Red Blood Cells 4.25 10^6/uL (4.0-5.20); Red Cell Distribution Width 19.6 % (11.8-14.3); White Blood Cell 5.3 10^3/uL (4.4-10.8)
[2021-05-02 06:53] LABS: Eosinophils % (auto) 0.7 % (0.0-7.0); Hematocrit 32.7 % (36.0-46.0); Lymphocytes % (auto) 22.3 % (10.0-50.0); Mean Corpuscular Hgb Conc. 33.7 g/dL (32.0-36.0); Mean Corpuscular Volume 77.1 fL (80.0-100.0); Neutrophils # (auto) 3.2 10 ^3/uL (1.6-8.6); Neutrophils % (auto) 59.5 % (37.0-80.0); Nucleated Red Blood Cells % 0.2 %
[2021-05-02 07:11] LABS: BUN/Creatinine Ratio 13.7; Calcium 8.3 mg/dL (8.5-10.1)
[2021-05-02 07:38] LABS: Potassium 2.7 mmol/L (3.5-5.1)
[2021-05-02 08:00] VITALS: BP 121/70
[2021-05-02] MEDS: FLORASTOR (S. BOULARDII) 250 MG CAP PO SCH ×2 (10:25→21:34)
[2021-05-02] MEDS: METOPROLOL SUCCINATE XL 50 MG TAB PO SCH (10:25)
[2021-05-02] MEDS: levoFLOXacin 500MG 100 ML IV SCH (10:25)
[2021-05-02] MEDS: POTASSIUM CHL 20MEQ/100ML 100 ML IV SCH ×2 (11:05→12:45)
[2021-05-02] MEDS: Ensure Enlive Strawberry 8oz Bottle PO SCH ×3 (12:00→21:34)
[2021-05-02 13:00] VITALS: BP 105/69
[2021-05-02] MEDS ORDERED: ONDANSETRON HCL 4 MG/2 ML VIAL IV PRN (13:45)
[2021-05-02] MEDS ORDERED: POLYETHYLENE GLYCOL 17 GM PWDR PO PRN (14:00)
[2021-05-02] MEDS ORDERED: POTASSIUM CHL 20MEQ/100ML 100 ML IV SCH (15:00)
[2021-05-02 17:00] VITALS: BP 139/93
[2021-05-02] MEDS: LACTULOSE 20Gm/30ML SOLN PO SCH (17:15)
[2021-05-02 22:00] VITALS: BP 110/73
[2021-05-02] MEDS ORDERED: POTASSIUM CHL 20 Meq TABLET PO ONE (22:45)
[2021-05-03 05:00] VITALS: BP 103/62
[2021-05-03 05:37] LABS: Basophils # (auto) 0 10 ^3/uL (0-0.2); Basophils % (auto) 0.8 % (0.0-2.0); Eosinophils # (auto) 0.1 10 ^3/uL (0-0.8); Eosinophils % (auto) 1.6 % (0.0-7.0); Hematocrit 31.9 % (36.0-46.0); Hemoglobin 10.4 g/dL (12.2-16.2); Lymphocytes # (auto) 1.4 10 ^3/uL (0.4-5.4); Lymphocytes % (auto) 29.4 % (10.0-50.0); Mean Corpuscular Hemoglobin 26.2 pg (28.0-32.0); Mean Corpuscular Hgb Conc. 32.5 g/dL (32.0-36.0); Mean Corpuscular Volume 80.6 fL (80.0-100.0); Monocytes # (auto) 0.9 10 ^3/uL (0-1.3); Monocytes % (auto) 17.9 % (0.0-12.0); Neutrophils # (auto) 2.5 10 ^3/uL (1.6-8.6); Neutrophils % (auto) 50.3 % (37.0-80.0); Nucleated Red Blood Cells % 0.3 %; Red Blood Cells 3.96 10^6/uL (4.0-5.20); Red Cell Distribution Width 19.8 % (11.8-14.3); White Blood Cell 4.9 10^3/uL (4.4-10.8)
[2021-05-03 05:44] LABS: Potassium 3.5 mmol/L (3.5-5.1)
[2021-05-03] MEDS: Ensure Enlive Strawberry 8oz Bottle PO SCH (06:26)
[2021-05-03] MEDS: metroNIDAZOLE 500MG/100ML 100 ML IV SCH (06:26)
[2021-05-03] MEDS: MORPHINE SULFATE INJECTION 2 MG/ML SYRG IV PRN ×2 (06:27→12:35)
[2021-05-03 08:39] VITALS: BP 115/75
[2021-05-03] MEDS: LACTULOSE 20Gm/30ML SOLN PO SCH (08:46)
[2021-05-03] MEDS: levoFLOXacin 500MG 100 ML IV SCH (09:17)
[2021-05-03] MEDS: METOPROLOL SUCCINATE XL 50 MG TAB PO SCH (09:18)
[2021-05-03] MEDS: PROMETHAZINE HCL 25 MG/ML 1ML IV PRN ×2 (09:19→12:35)
[2021-05-03] MEDS: FLORASTOR (S. BOULARDII) 250 MG CAP PO SCH (10:00)
[2021-05-03] MEDS ORDERED: LEVO500T31 PO (12:23)
[2021-05-03] MEDS ORDERED: NUTR-1275 PO (12:23)
[2021-05-03] MEDS ORDERED: LACT10SO3 PO (12:23)
[2021-05-03] MEDS ORDERED: ONDA-144 PO (12:23)
[2021-05-03] MEDS ORDERED: METO-6 PO (12:23)
[2021-05-03] MEDS ORDERED: METR500T PO (12:23)
[2021-05-03] MEDS ORDERED: PROM25TA5 OR (12:23)
[2021-05-03 13:19] VITALS: BP 94/55
== END 2021-05-03 15:48 | disposition home health service (06) | DRG 249 ==
LOC: ER 02:18 → TELE 13:25 → TELE-WESTW 04-29 21:52
PROVIDERS: ADMIT Internal Medicine; ATTEND Internal Medicine
DX: K52.1 Toxic gastroenteritis and colitis (principal); C18.9 Malignant neoplasm of colon, unspecified; D64.9 Anemia, unspecified; E11.9 Type 2 diabetes mellitus without complications; I10 Essential (primary) hypertension; K59.00 Constipation, unspecified; Z20.822 Contact with and (suspected) exposure to COVID-19; Z80.9 Family history of malignant neoplasm, unspecified; Z82.49 Family history of ischemic heart disease and other diseases of the circulatory system; Z83.3 Family history of diabetes mellitus; Z85.038 Personal history of other malignant neoplasm of large intestine; Z86.19 Personal history of other infectious and parasitic diseases; Z90.49 Acquired absence of other specified parts of digestive tract; Z98.51 Tubal ligation status; Z92.21 Personal history of antineoplastic chemotherapy; T45.1X5A Adverse effect of antineoplastic and immunosuppressive drugs, initial encounter
CPT/HCPCS: 36415; 71045; 74176; 80048; 80053; 81001; 83605; 83690; 83735; 85025; 85048; 86850; 86900; 86901; 87040; 87045; 87426; 87427; 87493; 93005; 96361; 96365; 96375; 97110; 97116; 97163; 97530; G0378; J1956; J2405; J3480; J3490

== ENCOUNTER 2021-07-12 22:58 | Emergency (ER) | payer MEDICAID ==
[~2021-07-12] VITALS: Ht 152.4 cm; Wt 55.3 kg
[~2021-07-12 22:58] MED LIST changes: -ACET-1304 PO; +DOCU-94 PO; +HYDR-4798 PO; +LACT10SO3 PO; +LEVO500T31 PO; -METO-289 PO; +METO-6 PO; +METR500T PO; +NUTR-1275 PO; +ONDA-144 PO; +PROM25TA5 OR; -VANC125PO PO
[2021-07-12 23:55] LABS: Basophils # (auto) 0.1 10 ^3/uL (0-0.2); Basophils % (auto) 0.4 % (0.0-2.0); Eosinophils # (auto) 0.2 10 ^3/uL (0-0.8); Eosinophils % (auto) 1.2 % (0.0-7.0); Hematocrit 32.2 % (36.0-46.0); Lymphocytes # (auto) 1.1 10 ^3/uL (0.4-5.4); Lymphocytes % (auto) 7.7 % (10.0-50.0); Mean Corpuscular Hemoglobin 22.5 pg (28.0-32.0); Mean Corpuscular Volume 72.6 fL (80.0-100.0); Monocytes # (auto) 0.4 10 ^3/uL (0-1.3); Monocytes % (auto) 3.1 % (0.0-12.0); Neutrophils # (auto) 12.6 10 ^3/uL (1.6-8.6); Neutrophils % (auto) 87.6 % (37.0-80.0); Red Blood Cells 4.43 10^6/uL (4.0-5.20); Red Cell Distribution Width 19.1 % (11.8-14.3); White Blood Cell 14.4 10^3/uL (4.4-10.8)
[2021-07-13 00:10] LABS: Albumin 3.7 g/dL (3.4-5.0); BUN/Creatinine Ratio 19.7; Calcium 9.2 mg/dL (8.5-10.1); Magnesium 2.2 mg/dL (1.6-2.6); Potassium 4.4 mmol/L (3.5-5.1)
[2021-07-13 00:14] LABS: Bilirubin, Total 0.3 mg/dL (0.2-1.0); Total Protein 7.5 g/dL (6.4-8.2)
[2021-07-13] MEDS ORDERED: ONDANSETRON HCL 4 MG/2 ML VIAL IV ONE ×3 (00:30→13:00)
[2021-07-13] MEDS ORDERED: HYDROmorphone HCL 2 MG/ML VL IV ONE ×3 (00:30→09:30)
[2021-07-13] MEDS ORDERED: SODIUM CHLORIDE 0.9% 1,000 ML IV ONE (00:30)
[2021-07-13] MEDS ORDERED: IOHEXOL 300 MG/ML 100ML BOTTLE IJ ONE (01:27)
[2021-07-13] MEDS ORDERED: PIPERACILLIN-TAZOB 3.375GM 100 ML IV ONE (05:15)
[2021-07-13 07:40] LABS: Urine Bacteria NONE SEEN /hpf (None Seen); Urine Blood Negative /uL (Negative); Urine WBC 11 /hpf (0 - 5)
[2021-07-13] MEDS ORDERED: HYDROcodone-ACET 5/325MG TAB PO PRN (14:45)
[2021-07-13] MEDS ORDERED: MORPHINE SULFATE INJECTION 2 MG/ML SYRG IV PRN (14:45)
[2021-07-13] MEDS ORDERED: ONDANSETRON HCL 4 MG/2 ML VIAL IV PRN (14:45)
[2021-07-13] MEDS ORDERED: hydrALAZINE HCL 20 MG/ML VL IV PRN (15:00)
[2021-07-13 17:15] VITALS: BP 109/61
== END 2021-07-13 17:44 | disposition home or self-care (01) ==
LOC: ER 22:58
DX: R10.31 Right lower quadrant pain (principal); R11.2 Nausea with vomiting, unspecified; I10 Essential (primary) hypertension; Z98.51 Tubal ligation status; Z32.02 Encounter for pregnancy test, result negative
CPT/HCPCS: 36415; 74177; 76856; 80053; 81001; 83605; 83690; 83735; 84702; 85025; 87040; 87426; 96361; 96365; 96366; 96375; 96376; 99285; J1170; J2270; J2405; J2543; J7030; Q9967

== ENCOUNTER 2021-09-21 14:54 | Emergency (ER) | payer MEDICAID ==
[~2021-09-21] VITALS: Ht 152.4 cm; Wt 59.0 kg
[2021-09-21 15:52] LABS: Urine WBC None Seen /hpf (0 - 5)
[2021-09-21 16:00] LABS: Basophils # (auto) 0.1 10 ^3/uL (0-0.2); Eosinophils # (auto) 0.8 10 ^3/uL (0-0.8); Neutrophils # (auto) 6.5 10 ^3/uL (1.6-8.6); Nucleated Red Blood Cells % 0.1 %
[2021-09-21 16:02] LABS: Basophils % (auto) 0.5 % (0.0-2.0); Eosinophils % (auto) 8.3 % (0.0-7.0); Hematocrit 32.8 % (36.0-46.0); Hemoglobin 10.5 g/dL (12.2-16.2); Lymphocytes # (auto) 1.9 10 ^3/uL (0.4-5.4); Lymphocytes % (auto) 19.5 % (10.0-50.0); Mean Corpuscular Hemoglobin 22.3 pg (28.0-32.0); Mean Corpuscular Hgb Conc. 32.1 g/dL (32.0-36.0); Mean Corpuscular Volume 69.5 fL (80.0-100.0); Monocytes # (auto) 0.4 10 ^3/uL (0-1.3); Monocytes % (auto) 4.3 % (0.0-12.0); Neutrophils % (auto) 67.4 % (37.0-80.0); Red Blood Cells 4.71 10^6/uL (4.0-5.20); Red Cell Distribution Width 19.7 % (11.8-14.3); White Blood Cell 9.6 10^3/uL (4.4-10.8)
[2021-09-21 16:06] LABS: Urine Bacteria NONE SEEN /hpf (None Seen); Urine Blood Negative /uL (Negative); Urine Mucus FEW (None Seen); Urine Specific Gravity 1.022 (1.001-1.035)
[2021-09-21 16:11] LABS: BUN/Creatinine Ratio 14.5; Calcium 8.4 mg/dL (8.5-10.1); Potassium 3.8 mmol/L (3.5-5.1)
[2021-09-21] MEDS ORDERED: HYDROmorphone HCL 2 MG/ML VL IV ONE ×3 (17:00→23:00)
[2021-09-21] MEDS ORDERED: PROCHLORPERAZINE EDISYLATE 5 MG/ML 2ML VIAL IV ONE (17:00)
[2021-09-21] MEDS ORDERED: ONDANSETRON HCL 4 MG/2 ML VIAL IV ONE (19:00)
[2021-09-21 23:30] VITALS: BP 138/81
== END 2021-09-22 00:21 | disposition home or self-care (01) ==
LOC: ER 14:54
DX: N83.201 Unspecified ovarian cyst, right side (principal); I10 Essential (primary) hypertension; Z90.89 Acquired absence of other organs; Z98.51 Tubal ligation status
CPT/HCPCS: 36415; 74176; 76830; 76856; 80048; 81001; 85025; 96374; 96375; 96376; 99284; J0780; J1170; J2405

== ENCOUNTER 2022-10-22 15:03 | Emergency (ER) | payer MEDICAID ==
[~2022-10-22] VITALS: Ht 152.4 cm; Wt 59.0 kg
[2022-10-22 15:15] VITALS: BP 126/71
[2022-10-22] MEDS ORDERED: IBUP600T27 PO (15:54)
[2022-10-22] MEDS ORDERED: AMOX875T3 PO (15:54)
[2022-10-22] MEDS ORDERED: PROM1SOL4 PO (15:54)
== END 2022-10-22 16:08 | disposition home or self-care (01) ==
LOC: ER 15:03
DX: H66.93 Otitis media, unspecified, bilateral (principal); J04.0 Acute laryngitis; I10 Essential (primary) hypertension; Z90.49 Acquired absence of other specified parts of digestive tract; Z79.1 Long term (current) use of non-steroidal anti-inflammatories (NSAID); Z79.2 Long term (current) use of antibiotics; Z79.899 Other long term (current) drug therapy